=== PATIENT | male | born 1990 | race Caucasian/White ===

== ENCOUNTER 2017-02-25 19:00 | Emergency (ER) | payer OTHER ==
[~2017-02-25] VITALS: Ht 185.4 cm; Wt 83.9 kg
[~2017-02-25 19:00] MED LIST: MOTRIN 600 MG600 MG PO; PERCOCET 325 MG1 TA2 PO
[2017-02-25 19:08] VITALS: BP 108/64
--- NOTE | 2017-02-25 20:12 | RADIOLOGY REPORT ---
EXAMINATION: XR FOOT, RIGHT CLINICAL INFORMATION: Pain and swelling. COMPARISON: None TECHNIQUE: AP, lateral, and oblique views of the right foot. FINDINGS: There is no visible acute fracture, dislocation or soft tissue abnormality. The ankle mortise and subtalar joints are normal. IMPRESSION: Unremarkable right foot exam.
--- NOTE | 2017-02-25 20:52 | ED ANKLE/FOOT INJURY COMPLAINT ---
History of Present Illness General Chief Complaint: Foot or Ankle Injury Stated Complaint: RIGHT FOOT PAIN Source: patient Exam Limitations: no limitations Vital Signs & Intake/Output Vital Signs & Intake/Output Vital Signs Date Time Temp Pulse Resp B/P Pulse O2 O2 Flow FiO2 Ox Delivery Rate 02/26 1908 97.9 77 20 108/64 98 Room Air Room Air Allergies Coded Allergies: bee venom protein (honey bee) (Severe, ANAPHYLAXIS 02/25/17) Reconcile Medications Ibuprofen (Motrin 600 MG Tab) 600 MG TABLET 1 TAB PO Q6P PRN PAIN OXYCODONE HCL/ACETAMINOPHEN (Percocet 5-325 MG Tablet) 325 MG/5 MG TAB 1-2 TAB PO Q4-6 PRN PRN PAIN Triage Note: PT TO ED S/P "EXCAVATOR BUCKET FELL ONTO RIGHT FOOT", HAPPENED YESTERDAY. AMBULATORY INTO TRIAGE. Triage Nurses Notes Reviewed? yes Occurred: yesterday Duration: day(s): (1) Timing: no prior history Severity: moderate Severity Numbers: 5 Pain/Injury Location: Right: Foot. Method of Injury: direct blow Modifying Factors: Improves With: immobilization. Worsens With: movement. HPI: Patient is a 26-year-old male presenting to the emergency department with chief complaint of right foot pain that started yesterday after he dropped an excavator bucket on his foot. Pain is achy throbbing worse with palpation and movement. Denies any numbness or tingling. Pain is fairly moderate. No radiation of the pain. Denies history of similar injury in the past. Has been using Tylenol with some relief. Denies any other injury. (FRANCES MONROE) Past History Travel History Traveled to [place] past 21 day No Medical History Any Pertinent Medical History? see below for history Neurological: NONE EENT: NONE Cardiovascular: NONE Respiratory: NONE Gastrointestinal: NONE Hepatic: NONE Renal: NONE Musculoskeletal: NONE Psychiatric: NONE Endocrine: NONE Blood Disorders: NONE Cancer(s): NONE UI DEVELOPER DESIGNER/Reproductive: NONE Surgical History Surgical History: non-contributory Psychosocial History What is your primary language Turkish Tobacco Use: Current Daily Use Daily Tobacco Use Amount/Type: => 5 Cigarettes daily ETOH Use: denies use Illicit Drug Use: denies illicit drug use Family History Hx Contributory? No (FRANCES MONROE) Review of Systems Review of Systems Constitutional: Reports: no symptoms. Comments Review of systems: See HPI, All other systems negative. Constitutional, no chills fever or weight loss HEENT: No visual changes no sore throat no congestion Cardiovascular: No chest pain ,palpitation Skin, no jaundice no rashes Respiratory: No dyspnea cough sputum or hemoptysis GI: No nausea no vomiting Muscle skeletal: no back pain, no neck pain, Neurologic: No numbness no confusion Psych: No stress anxiety Immunology: No splenectomy or history of AIDS (FRANCES MONROE) Physical Exam Physical Exam General Appearance: well developed/nourished, no apparent distress, alert, awake , comfortable Leg/Knee/Thigh Left: normal range of motion, normal inspection Comments: Well-developed well-nourished no apparent distress. HEENT: Atraumatic, extraocular motion intact Neck: Supple, no lymphadenopathy Back: Nontender Respiratory: No respiratory distress Extremities: Mild edema and ecchymosis noted on the dorsum of the right foot. Tender to palpation along the third and fourth metatarsals of the right foot. Full range of motion of right foot, right ankle. Pedal pulses are 2+ bilaterally. No malleolar tenderness to palpation on the right lower extremity. No calf tenderness to palpation of the right lower 70. Full range of motion of right patella without difficulty or pain. Capillary refill is intact in lower extremity on the right. Neuro: Alert and oriented x3, motor and sensory intact on right lower extremity. Psych: Mood affect normal, normal memory normal judgment. (FRANCES MONROE) Progress Differential Diagnosis: fracture, dislocation, sprain, contusion Plan of Care: Patient was informed of negative x-ray. Likely contusion. Educated on rest and icing and elevating and compression. We'll follow up with PCP. (FRANCES MONROE) Departure Departure Time of Disposition: 2099 Disposition: HOME OR SELF CARE Condition: Stable Clinical Impression Primary Impression: Foot contusion Qualifiers: Encounter type: initial encounter Laterality: right Qualified Code: S90.31XA - Contusion of right foot, initial encounter Referrals: PATIENT HAS NO PRIMARY CARE DR (PCP/Family) Additional Instructions: Follow-up with your primary care physician call to make an appointment. Rest ice and elevate. Take [id number] Motrin and Tylenol as directed. Return for worsening symptoms or concerns. Departure Forms: Customer Survey General Discharge Information (FRANCES MONROE) PA/PRODUCT SUPPORT ENGINEER Co-Sign Statement Statement: ED Attending supervision documentation- [] I saw and evaluated the patient. I have also reviewed all the pertinent lab results and diagnostic results. I agree with the findings and the plan of care as documented in the PA's/PRODUCT SUPPORT ENGINEER's documentation. [X] I have reviewed the ED Record and agree with the PA's/PRODUCT SUPPORT ENGINEER's documentation. [] Additions or exceptions (if any) to the PAs/PRODUCT SUPPORT ENGINEER's note and plan are summarized below: [] (AUDREY SARAVIA,AYAH)
== END 2017-02-25 21:18 ==
LOC: ERH 19:00
DX: S90.31XA Contusion of right foot, initial encounter (principal); W23.0XXA Caught, crushed, jammed, or pinched between moving objects, initial encounter; Y92.9 Unspecified place or not applicable; Y93.9 Activity, unspecified
CPT/HCPCS: 73630-RT